=== PATIENT | female | born 1945 | race Caucasian/White ===

== ENCOUNTER 2020-04-20 10:07 | Day surgery (SDC) | payer MEDICARE, OTHER ==
[~2020-04-20 10:07] MED LIST: Lactated Ringers 1,000 ML IV SCH; Sodium Chloride 0.9% 10 ML SDV IV PRN; Sodium Chloride 0.9% 10 ML Syringe FLUSH PRN; Sodium Chloride 0.9% 2.5 ML Syringe FLUSH PRN
[2020-04-20] MEDS ORDERED: Midazolam 1 MG/ML 2 ML SDV ONE (10:46)
[2020-04-20] MEDS ORDERED: Propofol 200 MG/20 ML SDV ONE ×5 (10:46→12:26)
--- NOTE | 2020-04-20 10:46 | PCM.PREANE ---
Preanesthetic Assessment - Anesthesia/Transfusion/Family Hx Anesthesia History: Prior Anesthesia Without Reaction Family History of Anesthesia Reaction: No Transfusion History: No Prior Transfusion(s) - Review of Systems General: No Symptoms Pulmonary: No Symptoms Cardiovascular: No Symptoms Gastrointestinal: No Symptoms Neurological: No Symptoms Other: Reports: None - Physical Assessment NPO Status Date: 04/19/20 Height: 5 ft 9 in Weight: 94.801 kg ASA Class: 2 Mental Status: Alert & Oriented x3 Airway Class: Mallampati = 2 Dentition: Reports: Normal Dentition ROM/Head Extension: Full Lungs: Clear to Auscultation, Normal Respiratory Effort Cardiovascular: Regular Rate, Regular Rhythm - Allergies Allergies/Adverse Reactions: Allergies Allergy/AdvReac Type Severity Reaction Status Date / Time No Known Allergies Allergy Verified 04/20/20 10:38 - Blood Blood Available: No - Anesthesia Plan Pre-Op Medication Ordered: None - Acknowledgements Anesthesia Type Planned: General Anesthesia (tiva) Pt an Appropriate Candidate for the Planned Anesthesia: Yes Alternatives and Risks of Anesthesia Discussed w Pt/Guardian: Yes Pt/Guardian Understands and Agrees with Anesthesia Plan: Yes Additional Comments: pmh: tho uses cpap, smoker PreAnesthesia Questionnaire HEENT History: Reports: Other (See Below) Other HEENT History: reading glasses Cardiovascular History: Reports: None Respiratory History: Reports: Sleep Apnea Other Respiratory History: uses CPAP Gastrointestinal History: Reports: Colon Polyp Genitourinary History: Reports: None WE[employer]ER History: Reports: Musculoskeletal History: Reports: None Neurological History: Reports: None Psychiatric History: Reports: Anxiety, Depression Endocrine/Metabolic History: Reports: Obesity/BMI 30+ Hematologic History: Reports: None Immunologic History: Reports: None Oncologic (Cancer) History: Reports: None Dermatologic History: Reports: None - Past Surgical History Head Surgeries/Procedures: Reports: None HEENT Surgical History: Reports: None Cardiovascular Surgical History: Reports: None Respiratory Surgical History: Reports: None GI Surgical History: Reports: Colonoscopy Female Surgical History: Reports: Hysterectomy Endocrine Surgical History: Reports: None Neurological Surgical History: Reports: None Musculoskeletal Surgical History: Reports: None Oncologic Surgical History: Reports: None Dermatological Surgical History: Reports: None - SUBSTANCE USE Tobacco Use Status *Q: Current Every Day Tobacco User Tobacco Use Within Last Twelve Months: Cigarettes - HOME MEDS Home Medications: Home Meds Aspirin [Adult Aspirin Regimen] 81 mg PO DAILY 04/15/20 [History] Cholecalciferol (Vitamin D3) [Vitamin D3] 5,000 units PO DAILY 04/15/20 [History] Citalopram Hydrobromide [Celexa] 20 mg PO BEDTIME 04/15/20 [History] Cyanocobalamin (Vitamin B12) [Vitamin B12] 500 mcg PO DAILY 04/15/20 [History] Turmeric Root Extract [Turmeric] 2,400 mg PO DAILY 04/15/20 [History] Ubidecarenone [Coq-10] 100 mg PO DAILY 04/15/20 [History] Vitamin E 400 units PO DAILY 04/15/20 [History] Zinc Gluconate [Zinc] 50 mg PO DAILY 04/15/20 [History] - CURRENT (IN HOUSE) MEDS Current Meds: Current Medications Lactated Ringer's (Ringers, Lactated) 1,000 mls @ 125 mls/hr IV ASDIRECTED LUCILA Last Admin: 04/20/20 10:38 Dose: 125 mls/hr Documented by: Sodium Chloride (Saline Flush) 10 ml FLUSH ASDIRECTED PRN PRN Reason: Keep Vein Open Sodium Chloride (Saline Flush) 2.5 ml FLUSH ASDIRECTED PRN PRN Reason: Keep Vein Open Sodium Chloride (Saline Flush) 10 ml FLUSH ASDIRECTED PRN PRN Reason: Keep Vein Open Sodium Chloride (Saline Flush) 2.5 ml FLUSH ASDIRECTED PRN PRN Reason: Keep Vein Open Sodium Chloride (Normal Saline) 10 ml IV ASDIRECTED PRN PRN Reason: IV Use
[2020-04-20] MEDS ORDERED: cefOXitin 1 GM Vial ONE (11:50)
[2020-04-20] MEDS ORDERED: Sodium Chloride 0.9% 20 ML ONE (11:50)
--- NOTE | 2020-04-20 13:01 | PCM.OPNOTE ---
- General Post-Op/Procedure Note Date of Surgery/Procedure: 04/20/20 Operative Procedure(s): Diagnostic colonoscopy with biopsy and polypectomy Findings: ascending colon polyps x 5, transverse colon mass with biopsy, transverse colon polyp with biopsy (hyperplastic vs polyp), transverse colon polyp x 4, descending colon polyp x 1, sigmoid colon polyp x 6, rectal polyp x 1, diverticulosis, grade IV hemorrhoids, hyperplastic colon polyps Pre Op Diagnosis: History of hemorrhoids and colon polyps, change in bowel habits Post-Op Diagnosis: ascending colon polyps x 5, transverse colon mass with biopsy, transverse colon polyp with biopsy (hyperplastic vs polyp), transverse colon polyp x 4, descending colon polyp x 1, sigmoid colon polyp x 6, rectal polyp x 1, diverticulosis, grade IV hemorrhoids, hyperplastic colon polyps Anesthesia Technique: [facility] [place] Surgeon: Arcelia Kraft Condition: Good
--- NOTE | 2020-04-20 14:51 | PCM.POSTAN ---
POST ANESTHESIA ASSESSMENT - MENTAL STATUS Mental Status: Alert, Oriented - VITAL SIGNS Vital Signs: Last Vital Signs Temp 97.3 F 04/20/20 13:10 Pulse 62 04/20/20 13:10 Resp 16 04/20/20 13:10 BP 145/62 H 04/20/20 13:10 Pulse Ox 96 04/20/20 13:10 - RESPIRATORY Respiratory Status: Respiratory Rate WNL, Airway Patent, O2 Saturation Stable - CARDIOVASCULAR CV Status: Pulse Rate WNL, Blood Pressure Stable - GASTROINTESTINAL GI Status: No Symptoms - POST OP HYDRATION Hydration Status: Adequate & Stable
--- NOTE | 2020-04-20 14:51 | PCM48HPAN ---
Post Anesthesia Note - EVALUATION WITHIN 48HRS OF ANESTHETIC Vital Signs in Normal Range: Yes Patient Participated in Evaluation: Yes Respiratory Function Stable: Yes Airway Patent: Yes Cardiovascular Function Stable: Yes Hydration Status Stable: Yes Pain Control Satisfactory: Yes Nausea and Vomiting Control Satisfactory: Yes Mental Status Recovered: Yes Vital Signs: Last Vital Signs Temp 97.3 F 04/20/20 13:10 Pulse 62 04/20/20 13:10 Resp 16 04/20/20 13:10 BP 145/62 H 04/20/20 13:10 Pulse Ox 96 04/20/20 13:10
--- NOTE | 2020-04-21 13:55 | OR ---
SURGEON: ARCELIA KRAFT MD DATE OF PROCEDURE: 04/20/2020 PREOPERATIVE DIAGNOSES: Change in bowel habits, history of colon polyps. POSTOPERATIVE DIAGNOSES: 1. Diverticulosis. 2. Grade 4 hemorrhoids. 3. Hyperplastic polyps. 4. Ascending colon polyps x5. 5. Transverse colon polyps x4. 6. Transverse colon mass x2. 7. Descending colon polyp x1. 8. Sigmoid colon polyp x6. 9. Rectal polyp x1. PROCEDURE PERFORMED: Diagnostic colonoscopy with polypectomy and biopsy. PRIMARY SURGEON: Arcelia Kraft MD ANESTHESIA: MAC. INSTRUMENT USED: Olympus colonoscope. EXTENT OF EXAM: To the cecum. PREPARATION: Good. LIMITATIONS: None. INDICATIONS FOR EXAMINATION: The patient is a 75-year-old female who is a smoker and who has a history of colon polyps. She presented to clinic with changes in her bowel habits. The decision was made to proceed with diagnostic colonoscopy. I explained the procedure, expected perioperative course, and the risks. The patient verbalized understanding and wishes to proceed. PROCEDURE IN DETAIL: The patient was brought into the endoscopy suite and placed in the left lateral decubitus position. A time-out was completed verifying the patient's name, age, date of , allergies, and procedure to be performed. Monitored anesthesia care was induced and continuous oxygen was provided via nasal cannula throughout the procedure. After adequate sedation was achieved, a digital rectal exam was performed. This exam revealed grade 4 hemorrhoids. A well-lubricated colonoscope was inserted in the rectum and advanced under direct visualization to the level of the cecum. The cecum was identified by both visual and anatomic landmarks. A photograph was taken of the cecal cap, however, due to looping of the scope more proximally, I was unable to retroflex the scope within the cecum. The scope was then fully withdrawn while examining the color, texture, anatomy, and integrity of the mucosa from the cecum to the anal canal. The patient was noted to have five polyps within the ascending colon. I removed ascending colon polyp 1, 3, 4, and 5 using cold biopsy forceps. Ascending colon polyp #2 was removed using a hot snare. In the transverse colon, the patient was noted to have four sessile polyps throughout. These were all removed using cold biopsy forceps and sent to pathology, labeled as transverse colon polyps. At 85 cm, the patient was noted to have a colonic mass. The base of the mass was broad, and encompassed one-fourth to one-third of the circumference of the lumen. Multiple photographs were taken. Biopsies were taken of this and sent to pathology, labeled as transverse colon mass. Given its size and the wider base, the decision was made not to attempt any further resection. The area was inked with 1 mL of marking ink for identification in the future. At 80 cm, the patient was noted to have what appeared to be a hyperplastic polyp. This was larger in nature. The decision was made to take biopsies of this to determine whether it was an adenomatous polyp versus a hyperplastic polyp. These were labeled as transverse colon biopsy #2. The area was inked for identification in the future as well. In the descending colon, the patient was noted to have another polyp. This was small and sessile. It was removed in piecemeal fashion using cold biopsy forceps. The patient had six sigmoid colon polyps. Sigmoid colon polyp #3 was large and pedunculated on a long stalk. This was removed using a hot snare. The remainder of the polyps were removed using cold biopsy forceps. The patient had diverticulosis throughout the sigmoid colon. The patient also had a small rectal polyp. This was removed in piecemeal fashion using cold biopsy forceps. At the sigmoid-rectal junction, the patient was noted to have a couple of hyperplastic appearing polyps. The scope was then retroflexed within the rectum to allow visualization of the anal canal opening. This again confirmed the internal hemorrhoids. A photograph was taken. The scope was straightened out and fully withdrawn. Cecum to anus time was 1 hour and 24 minutes. The patient tolerated the procedure well and was taken to the PACU in stable condition. ENDOSCOPIC DIAGNOSES: 1. Diverticulosis. 2. Grade 4 hemorrhoids. 3. Hyperplastic polyps. 4. Ascending colon polyps x5. 5. Transverse colon polyps x4. 6. Transverse colon mass x2. 7. Descending colon polyp x1. 8. Sigmoid colon polyp x6. 9. Rectal polyp x1. RECOMMENDATIONS: I will visit with the patient in clinic in 2 weeks to discuss the next steps in treatment. DAYANA GRAY /[id number] DONNA
== END 2020-04-20 13:33 | disposition home or self-care (01) ==
LOC: MW.SDS 10:07
PROVIDERS: ATTEND Surgery
DX: D12.2 Benign neoplasm of ascending colon (principal); D12.3 Benign neoplasm of transverse colon; D12.4 Benign neoplasm of descending colon; D12.5 Benign neoplasm of sigmoid colon; K57.30 Diverticulosis of large intestine without perforation or abscess without bleeding; K64.3 Fourth degree hemorrhoids; K62.1 Rectal polyp; F17.210 Nicotine dependence, cigarettes, uncomplicated; E66.9 Obesity, unspecified; E78.00 Pure hypercholesterolemia, unspecified; G47.33 Obstructive sleep apnea (adult) (pediatric); Z79.82 Long term (current) use of aspirin; Z79.899 Other long term (current) drug therapy; Z98.890 Other specified postprocedural states; Z68.29 Body mass index [BMI] 29.0-29.9, adult
CPT/HCPCS: 45380; 45385; J0694; J2250; J2704; J7120; 00811; 88305

== ENCOUNTER 2024-11-11 08:11 | Day surgery (SDC) | payer MEDICARE, OTHER ==
[~2024-11-11 08:11] MED LIST changes: -Lactated Ringers 1,000 ML IV SCH; -Sodium Chloride 0.9% 10 ML SDV IV PRN
[2024-11-11] MEDS ORDERED: Propofol 200 MG/20 ML SDV ONE (08:43)
[2024-11-11] MEDS: Lactated Ringers 1,000 ML IV SCH (08:44)
== END 2024-11-11 10:24 | disposition home or self-care (01) ==
LOC: MW.SDS 08:11
PROVIDERS: ATTEND Surgery
DX: Z12.11 Encounter for screening for malignant neoplasm of colon (principal); D12.5 Benign neoplasm of sigmoid colon; K62.1 Rectal polyp; K57.30 Diverticulosis of large intestine without perforation or abscess without bleeding; K64.8 Other hemorrhoids; E66.9 Obesity, unspecified; F17.210 Nicotine dependence, cigarettes, uncomplicated; Z90.49 Acquired absence of other specified parts of digestive tract; Z79.82 Long term (current) use of aspirin; Z68.28 Body mass index [BMI] 28.0-28.9, adult; Z79.899 Other long term (current) drug therapy; Z86.0101 Personal history of adenomatous and serrated colon polyps
CPT/HCPCS: 45380; 88305; A9270; J2003; J2704; J7120; 00811; 99100